=== PATIENT | female | born 1995 | race Caucasian/White ===

== ENCOUNTER 2017-06-16 00:42 | Emergency (ER) | payer BC ==
--- NOTE | 2017-06-16 00:46 | EDPHY ---
H & P HPI/ROS: HPI CHIEF COMPLAINT: M1 Hold by PD, Self-Inflicted Cut to Right Arm. HISTORY OF PRESENT ILLNESS: Patient very pleasant 21-year-old female, history of attention deficit hyperactivity disorder, as well as insomnia presents emergency room by EMS and [employer] on M1 hold for self- inflicted cut her right arm. Patient denies being suicidal. She states that she got angry and upset good deal of full was going on her life so she cut her arm. She now has regret for this. She sustained a horizontally oriented 4 cm right forearm laceration. Past Medical History: Attention deficit hyperactivity disorder, insomnia Past Surgical History: No recent surgical history Social History: Denies drugs alcohol tobacco products. [employer] student. Family History: Noncontributory ROS REVIEW OF SYSTEMS: A comprehensive 10 point review of systems is otherwise negative aside from elements mentioned in the history of present illness. Exam Constitutional triage nursing summary reviewed, vital signs reviewed, awake/ alert. Eyes normal conjunctivae and sclera, EOMI, PERRLA. HENT normal inspection, atraumatic, moist mucus membranes, no epistaxis, neck supple/ no meningismus, no raccoon eyes. Respiratory clear to auscultation bilaterally, normal breath sounds, no respiratory distress, no wheezing. Cardiovascular rate normal, regular rhythm, no murmur, no edema, distal pulses normal. Gastrointestinal soft, non-tender, no rebound, no guarding, normal bowel sounds, no distension, no pulsatile mass. Genitourinary no CVA tenderness. Musculoskeletal no midline vertebral tenderness, full range of motion, no calf swelling, no tenderness of extremities, no meningismus, good pulses, neurovascularly intact. Skin pink, warm, & dry, no rash, Right ForeArm: Horizontally oriented mid forearm 4 cm laceration. No tendon involvement. No arterial involvement. No deep structures. Neurologic awake, alert and oriented x 3, AAOx3, moves all 4 extremities equally, motor intact, sensory intact, CN II-XII intact, normal cerebellar, normal vision, normal speech. Psychiatric normal mood/affect. Heme/Lymph/Immune no lymphadenopathy. Differential Diagnosis: Includes but is not limited to in a particular order arm laceration, M1 hold, suicidal ideation, depression, mood disorder Medical Decision Making: Plan for this patient should be placed on M1 hold by police, will need blood draw for medical clearance. She will need mental health evaluation. Also need to repair her right forearm laceration. Re-evaluation: Laceration Repair Procedure: Verbal Consent was obtained, Under sterile conditions, The patient had lidocaine with epinephrine used approximately 5ccs to local anesthetize the Right Forearm 4cm Laceration. The wound was copiously irrigated with sterile fluid, the wound was explored for foreign bodies there were none visualized, the wound was explored with a sterile glove to the base. There are no deep structures involved, including no arterial injury. 5 interrupted 5.O prolene Sutures were placed in this patient's laceration. She had good close approximation of the wound edges. She Tolerated this well. 0338: Patient has been evaluated by Psychiatry Dr. [facility] vacated the M1 hold. The patient is safe for discharge. Contracts for safety. She does understand return emergency room if she develops any worsening symptoms thoughts of harm herself or anybody else. Laceration has been repaired she understands have sutures removed in 12 days. Source: Patient, EMS Constitutional: Initial Vital Signs Temperature (C) 36.6 C 06/16/17 00:46 Heart Rate 76 06/16/17 00:46 Respiratory Rate 16 06/16/17 00:46 Blood Pressure 144/91 H 06/16/17 00:46 O2 Sat (%) 99 06/16/17 00:46 O2 Delivery Mode Room Air Allergies/Adverse Reactions: No Known Allergies Allergy (Unverified 06/16/17 00:45) Home Medications: Medication Instructions Recorded Adderall 10 MG (*) 06/16/17 Vyvanse 06/16/17 traZODone 06/16/17 Medical Decision Making - Data Points Laboratory Results: Laboratory Results 06/16/17 00:57 06/16/17 00:57 06/16/17 06/16/17 06/16/17 01:05 00:57 00:57 WBC RBC Hgb Hct MCV MCH MCHC RDW Plt Count MPV Neut % (Auto) Lymph % (Auto) Humphreys % (Auto) Eos % (Auto) Baso % (Auto) Nucleat RBC Rel Count Absolute Neuts (auto) Absolute Lymphs (auto) Absolute Monos (auto) Absolute Eos (auto) Absolute Basos (auto) Absolute Nucleated RBC Immature Gran % Immature Gran # Sodium 146 mEq/L H mEq/L (134-144) Potassium 3.9 mEq/L mEq/L (3.5-5.2) Chloride 111 mEq/L H mEq/L (97-110) Carbon Dioxide 21 mEq/l L mEq/l (22-31) Anion Gap 14 mEq/L mEq/L (8-16) BUN 12 mg/dL mg/dL (7-23) Creatinine 0.7 mg/dL mg/dL (0.6-1.0) Estimated GFR > 60 Glucose 100 mg/dL mg/dL (70-100) Calcium 9.7 mg/dL mg/dL (8.5-10.4) Beta HCG, Qual NEGATIVE Urine Opiates Screen NEGATIVE (NEGATIVE) Urine Barbiturates NEGATIVE (NEGATIVE) Ur Phencyclidine Scrn NEGATIVE (NEGATIVE) Ur Amphetamine Screen NON-NEGATIVE H (NEGATIVE) U Benzodiazepines Scrn NEGATIVE (NEGATIVE) Urine Cocaine Screen NEGATIVE (NEGATIVE) U Marijuana (THC) Screen NEGATIVE (NEGATIVE) Ethyl Alcohol < 10 mg/dL mg/dL (0-10) 06/16/17 00:57 WBC 7.93 10^3/uL 10^3/uL (3.80-9.50) RBC 4.23 10^6/uL 10^6/uL (4.18-5.33) Hgb 13.2 g/dL g/dL (12.6-16.3) Hct 38.7 % % (38.0-47.0) MCV 91.5 fL fL (81.5-99.8) MCH 31.2 pg pg (27.9-34.1) MCHC 34.1 g/dL g/dL (32.4-36.7) RDW 12.2 % % (11.5-15.2) Plt Count 330 10^3/uL 10^3/uL (150-400) MPV 9.1 fL fL (8.7-11.7) Neut % (Auto) 54.7 % % (39.3-74.2) Lymph % (Auto) 36.1 % % (15.0-45.0) Humphreys % (Auto) 7.1 % % (4.5-13.0) Eos % (Auto) 1.0 % % (0.6-7.6) Baso % (Auto) 0.8 % % (0.3-1.7) Nucleat RBC Rel Count 0.0 % % (0.0-0.2) Absolute Neuts (auto) 4.35 10^3/uL 10^3/uL (1.70-6.50) Absolute Lymphs (auto) 2.86 10^3/uL 10^3/uL (1.00-3.00) Absolute Monos (auto) 0.56 10^3/uL 10^3/uL (0.30-0.80) Absolute Eos (auto) 0.08 10^3/uL 10^3/uL (0.03-0.40) Absolute Basos (auto) 0.06 10^3/uL 10^3/uL (0.02-0.10) Absolute Nucleated RBC 0.00 10^3/uL 10^3/uL (0-0.01) Immature Gran % 0.3 % % (0.0-1.1) Immature Gran # 0.02 10^3/uL 10^3/uL (0.00-0.10) Sodium Potassium Chloride Carbon Dioxide Anion Gap BUN Creatinine Estimated GFR Glucose Calcium Beta HCG, Qual Urine Opiates Screen Urine Barbiturates Ur Phencyclidine Scrn Ur Amphetamine Screen U Benzodiazepines Scrn Urine Cocaine Screen U Marijuana (THC) Screen Ethyl Alcohol Departure - Departure Disposition: Home, Routine, Self-Care Clinical Impression: Arm laceration Qualifiers: Encounter type: initial encounter Laterality: right Qualified Code(s): S41.111A - Laceration without foreign body of right upper arm, initial encounter Condition: Fair Instructions: Care For Your Stitches (ED), Laceration (ED) Additional Instructions: 1. Your sutures need to be removed in 12 days. Referrals: Patient,NotPresent [Unknown] - As per Instructions
[2017-06-16 00:50] VITALS: TEMP 97.9; O2SAT 99
[2017-06-16 01:08] LABS: PLATELET COUNT 330 10^3/uL (150-400)
[2017-06-16 03:55] VITALS: BP 136/88; PULSE 85; RESP 18
== END 2017-06-16 03:54 | disposition home or self-care (01) ==
LOC: EDUNIT#
PROC: 0HQDXZZ Repair Right Lower Arm Skin, External Approach (ICD-10-PCS; principal; 2017-06-16)
DX: S51.811A Laceration without foreign body of right forearm, initial encounter (principal); X78.8XXA Intentional self-harm by other sharp object, initial encounter; Y99.8 Other external cause status; Y93.89 Activity, other specified
CPT/HCPCS: 80305; G0480